=== PATIENT | female | born 1995 | race Caucasian/White ===

== ENCOUNTER 2022-06-11 10:33 | Emergency (ER) | payer OTHER ==
[~2022-06-11] VITALS: Ht 154.9 cm; Wt 56.7 kg
--- NOTE | 2022-06-11 11:00 | NUR ---
Patient is a 26-year-old female with no prior medical history who presents to the ED for 3-week history of cold-like symptoms associated with mild cough and congestion. Patient states she was feeling better until her symptoms returned a few days ago. Patient denies fever, chills, nausea, vomiting, diarrhea. No alleviating or aggravating factors.
--- NOTE | 2022-06-11 11:05 | NUR ---
ER at bedside examining patient.
[2022-06-11 11:07] VITALS: BP_SYST 111
--- NOTE | 2022-06-11 11:24 | NUR ---
COVID AND INFLUENZA SWABS OBTAINED AND SENT TO LAB.
[2022-06-11] MEDS ORDERED: ALBMDI INH (11:42)
[2022-06-11] MEDS ORDERED: D-ME118S48 PO (11:42)
--- NOTE | 2022-06-11 11:51 | NUR ---
Patient given written and verbal discharge instructions and verbalizes understanding. ER MD discussed with patient the results and treatment provided. Patient in stable condition. ID arm band removed. Rx of albuterol bromfed given. Patient educated on pain management and to follow up with PMD. Opportunity for questions provided and answered. Medication side effect fact sheet provided.
[2022-06-11 11:52] VITALS: BP_SYST 111
== END 2022-06-11 11:52 | disposition home or self-care (01) ==
LOC: SED 10:33
DX: B34.9 Viral infection, unspecified (principal); R05.9 Cough, unspecified; R09.81 Nasal congestion; Z79.899 Other long term (current) drug therapy; Z20.822 Contact with and (suspected) exposure to COVID-19
CPT/HCPCS: 36415; 99283